=== PATIENT | female | born 1990 | race Caucasian/White ===

== ENCOUNTER 2018-08-20 23:02 | Emergency (ER) | payer MEDICAID, OTHER ==
[~2018-08-20] VITALS: Ht 154.9 cm; Wt 86.4 kg
[~2018-08-20 23:02] MED LIST: FERR-252 PO; PREN-56 PO
[2018-08-20 23:23] VITALS: BP 103/61
--- NOTE | 2018-08-20 23:27 | NUR ---
PT AMBULATED TO THE RESTROOM TO COLLECT U/A FOR SPECIMEN
--- NOTE | 2018-08-20 23:30 | NUR ---
PT AMBULATED BACK TO THE LOBBY, ASUNCIONS
--- NOTE | 2018-08-21 02:13 | NUR ---
PT AMBULATED TO ER BED 05
--- NOTE | 2018-08-21 02:24 | NUR ---
28/F PRESENTS TO ED, C/O R KNEE PAIN X3 WEEKS, S/P SKIPPING 3 WEEKS AGO. PT REPORTS ONSET OF BURNING SENSATION 4 DAYS AGO ON ANTERIOR R KNEE/PROXIMAL FEMUR. +MILD SWELLING, +TENDERNESS, -REDNESS, +CMS. DENIES TRAUMA/INJURY. PT DENIES ANY FURTHER SYMPTOMS. AOX4, GCS 15, STATES AMBULATORY WITH LIMP, RR EVEN AND UNLABORED. DENIES MED HX OR RX. OTC TYLENOL WITH LITTLE RELIEF.
[2018-08-21] MEDS ORDERED: IBUPROFEN 600 MG TAB PO ONE (04:10)
--- NOTE | 2018-08-21 04:15 | NUR ---
RAZIA WRAP PLACED ON R KNEE, +CMS
[2018-08-21 04:33] VITALS: BP 100/60
== END 2018-08-21 04:33 | disposition home or self-care (01) ==
LOC: MED 23:02
DX: S83.91XA Sprain of unspecified site of right knee, initial encounter (principal); Z79.899 Other long term (current) drug therapy; X58.XXXA Exposure to other specified factors, initial encounter; Y93.89 Activity, other specified; Y92.89 Other specified places as the place of occurrence of the external cause; Y99.8 Other external cause status
CPT/HCPCS: 81025; 99282